=== PATIENT | male | born 1965 | race American Indian/Alaskan Native ===

== ENCOUNTER 2019-02-06 00:36 | Emergency (ER) | payer SELFPAY ==
[2019-02-06] MEDS ORDERED: LIDOCAINE 1.5% /EPINEPHRINE 1:200,000 AMP (5 ML) INFILTRATI ONE (00:45)
[2019-02-06] MEDS ORDERED: SODIUM CHLORIDE 0.9% IRR 500 ML BOTTLE IR ONE (00:45)
[2019-02-06] MEDS ORDERED: LIDOCAINE 1%/EPINEPHRINE 1:100,000 VIAL (20 ML) INFILTRATI ONE (00:54)
--- NOTE | 2019-02-06 01:42 | Emergency Department Report ---
ED General Adult HPI - General Chief complaint: Fall Stated complaint: HEAD PAIN Time Seen by Provider: 02/06/19 00:38 Source: patient, family, EMS ( EMS documentation not available at time of chart dictation ) Mode of arrival: Stretcher Limitations: Other (intoxication) - History of Present Illness Initial comments: This is a pleasant and cooperative 53-year-old gentleman who is brought to the hospital by emergency medical services. Patient was at a alliance party, recreationally consuming marijuana and alcohol, and reportedly tripped and fell. He is not sure if he lost consciousness. He has a right-sided forehead laceration. He has right-sided forehead pain. He denies additional pain. He thinks he is up-to-date with tetanus vaccinations. -: This morning Location: head Radiation: non-radiation Quality: aching Consistency: constant Improves with: rest Worsens with: movement - Related Data Allergies Allergy/AdvReac Type Severity Reaction Status Date / Time No Known Allergies Allergy Verified 02/06/19 01:46 ED Review of Systems ROS: Stated complaint: HEAD PAIN Other details as noted in HPI Constitutional: denies: fever Eyes: denies: eye discharge ENT: denies: dental pain Respiratory: denies: wheezing Cardiovascular: denies: syncope Gastrointestinal: denies: abdominal pain Musculoskeletal: denies: back pain Skin: lesions Neurological: headache. denies: weakness, numbness, paresthesias ED Past Medical Hx - Past Medical History Previous Medical History?: Yes Hx Hypertension: Yes Hx Diabetes: Yes - Surgical History Past Surgical History?: No - Social History Smoking Status: Never Smoker ED Physical Exam - General Limitations: Other (the patient is intoxicated) General appearance: appears intoxicated - Head Head exam: Present: normocephalic, other (on the right lateral forehead, there is a 3 cm laceration, with no obvious foreign bodies) - Eye Eye exam: Present: normal appearance, PERRL, EOMI, other (visual acuity intact to finger counting, color perception, reading at a close distance). Absent: nystagmus - ENT ENT exam: Present: normal exam, normal orophraynx, mucous membranes moist, TM's normal bilaterally, normal external ear exam, other (there is no nasal septal hematoma. There is no hemotympanum) - Neck Neck exam: Present: normal inspection. Absent: tenderness, meningismus - Respiratory Respiratory exam: Present: normal lung sounds bilaterally. Absent: respiratory distress - Cardiovascular Cardiovascular Exam: Present: regular rate, normal rhythm, normal heart sounds. Absent: bradycardia, tachycardia, irregular rhythm, systolic murmur, diastolic murmur, rubs, gallop - GI/Abdominal GI/Abdominal exam: Present: soft. Absent: distended, tenderness, guarding, re bound, rigid, pulsatile mass - Rectal Rectal exam: Present: deferred - Extremities Exam Extremities exam: Present: normal inspection, full ROM, other (2+ pulses noted in the bilateral upper, lower extremities. There is no long bone tenderness. Musculoskeletal compartments are soft. The pelvis is stable.). Absent: pedal edema, calf tenderness - Back Exam Back exam: Present: normal inspection. Absent: tenderness, CVA tenderness (R), CVA tenderness (L), paraspinal tenderness, vertebral tenderness - Neurological Exam Neurological exam: Present: alert, oriented X3, other (there is no facial droop. The tongue is midline. Extraocular movements are intact bilaterally. Patient speaking in full complete sentences. Shoulder shrug is intact bilaterally. Hearing is grossly intact bilaterally. Visual acuity intact to finger counting and color perception at a close distance. 5/5 strength 4 extremities. Sensation intact to light touch in 4 extremities.) - Psychiatric Psychiatric exam: Present: anxious - Skin Skin exam: Present: warm ED Course Vital Signs 02/06/19 02/06/19 02/06/19 01:14 01:20 02:12 Temperature 98.7 F Pulse Rate 80 87 Respiratory 18 18 18 Rate Blood Pressure 140/109 Blood Pressure 139/40 [Right] O2 Sat by Pulse 100 100 Oximetry - Reevaluation(s) Reevaluation #1: 02/06/19 01:40 Differential diagnosis, including but not limited to: Intracranial injury, cervical spine injury, superficial laceration, intoxication secondary to cannabis, alcohol Assessment and plan: 53-year-old gentleman who is clinically intoxicated, but pleasant, calm and cooperative, eyes open spontaneously, follows commands, has appropriate thought process, GCS of 15, with right-sided for head trauma after trip and fall. No additional injuries noted on primary and secondary survey. Patient placed on ER hold, cervical collar ordered, noncontrast CT scan brain, cervical spine ordered, screening laboratory studies ordered, right-sided forehead laceration is repaired. Patient will be observed in the ER pending resolution of the aforementioned diagnostics. He is accompanied by a sober adult, who feels comfortable to watch him at this point time. Reevaluation #2: 02/06/19 02:[address] scan of the brain is negative for acute disease. Reevaluation #3: 02/06/19 02:[address] scan of the brain and cervical spine negative for acute disease. Screening laboratory studies are fairly unremarkable. The patient does not appear to have an emergent medical condition at this time, and he suitable for discharge with his sober adult rn hyperbaric. Reevaluation #4: 02/06/19 02:35 Cervical spine is cleared at this time. CT scan negative, there is no midline cervical spine tenderness, and patient has appropriate strength and sensation in the bilateral upper, lower extremities. - Laceration /Wound Repair Right Lateral Face Wound Location: face Wound Length (cm): 3 Wound's Depth, Shape: into muscle, irregular, contused tissue Wound Explored: clean Irrigated w/ Saline (ccs): 450 Anesthesia: Lidocaine w/ Epi Volume Anesthetic (ccs): 5 Wound Repaired With: sutures Suture Size/Type: 4:0 (monofilament nonabsorbable) Number of Sutures: 5 Layer Closure?: No Sterile Dressing Applied?: Yes ED Medical Decision Making - Lab Data Result diagrams: 02/06/19 00:54 Vital Signs 02/06/19 02/06/19 01:14 01:20 Temperature 98.7 F Pulse Rate 80 Respiratory 18 18 Rate Blood Pressure 140/109 O2 Sat by Pulse 100 Oximetry Vital Signs 02/06/19 02/06/19 02/06/19 01:14 01:20 02:12 Temperature 98.7 F Pulse Rate 80 87 Respiratory 18 18 18 Rate Blood Pressure 140/109 Blood Pressure 139/40 [Right] O2 Sat by Pulse 100 100 Oximetry Lab Results 02/06/19 02/06/19 02/06/19 Range/Units 00:54 00:54 00:54 Sodium 134 L (137-145) mmol/L Potassium 3.9 (3.6-5.0) mmol/L Chloride 99.5 (98-107) mmol/L Carbon Dioxide 17 L (22-30) mmol/L Anion Gap 21 mmol/L BUN 14 (9-20) mg/dL Creatinine 1.2 (0.8-1.5) mg/dL Estimated GFR > 60 ml/min BUN/Creatinine Ratio 12 % Glucose 343 H (75-100) mg/dL Calcium 9.7 (8.4-10.2) mg/dL Magnesium 2.50 H (1.7-2.3) mg/dL Total Creatine Kinase 168 (55-170) units/L Salicylates < 0.3 L (2.8-20.0) mg/dL Acetaminophen < 5.0 L (10.0-30.0) ug/mL Plasma/Serum Alcohol (0-0.07) % 02/06/19 Range/Units 00:54 Sodium (137-145) mmol/L Potassium (3.6-5.0) mmol/L Chloride (98-107) mmol/L Carbon Dioxide (22-30) mmol/L Anion Gap mmol/L BUN (9-20) mg/dL Creatinine (0.8-1.5) mg/dL Estimated GFR ml/min BUN/Creatinine Ratio % Glucose (75-100) mg/dL Calcium (8.4-10.2) mg/dL Magnesium (1.7-2.3) mg/dL Total Creatine Kinase (55-170) units/L Salicylates (2.8-20.0) mg/dL Acetaminophen (10.0-30.0) ug/mL Plasma/Serum Alcohol < 0.01 (0-0.07) % - Radiology Data Radiology results: pending Critical care attestation.: If time is entered above; I have spent that time in minutes in the direct care of this critically ill patient, excluding procedure time. ED Disposition Clinical Impression: Forehead laceration, Intoxication Disposition: DC-01 TO HOME OR SELFCARE Is pt being admited?: No Does the pt Need Aspirin: No Condition: Stable Additional Instructions: Patient may wash for head laceration with gentle soap and water every 12-24 hours. Patient may apply [id number] bacitracin every 4-6 hours for the next 5 days, to forehead laceration. Recommend sutures be removed in 5-7 days. Patient may follow-up with the primary care doctor, urgent care center, or return to this department to have the sutures removed. In the future, recommend abstinence and avoidance of marijuana and recreational drugs. Recommends not combining marijuana with alcohol. Combination of multiple intoxicating substances may cause impairment in judgment, coordination, balance, and they leads 2 injury, disability, paralysis, loss of quality of life, . Recommend follow-up with the primary care doctor within the next month. Return to the emergency room right away with new, worsened, different symptoms, or symptoms not present on the initial emergency room evaluation. For pain control, patient may take [id number] Tylenol, 650 mg every 4-6 hours, changing with ibuprofen, 600 mg with food, every 6 hours. Patient may alternate ice packs and heat packs. Would recommend avoidance of heavy lifting and strenuous physical activities, would also recommend the patient not participate in physical sports, or contact sports, until cleared to do so by her primary care physician. Referrals: [facility] [Provider Group] - 3-5 Days [facility] [Provider Group] - 3-5 Days
[2019-02-06] MEDS ORDERED: BACITRACIN ZINC OINT 28.4 GM TP STA (01:43)
--- NOTE | 2019-02-06 02:11 | Cat Scan Report ---
CT head/brain wo con INDICATION / CLINICAL INFORMATION: intoxicated trip fall blunt head trauma. TECHNIQUE: Axial CT imaging of the brain was obtained without contrast. Coronal and sagittal reformatted imaging obtained and reviewed. All CT scans at this location are performed using CT dose reduction for ALAR A by means of automated exposure control. COMPARISON: None available. FINDINGS: No intracranial hemorrhage, mass, or midline shift identified. No extra-axial fluid collection or sug gestion of acute territorial infarction. Lacunar infarcts are present in the basal ganglia bilaterall y. Mild/moderate bilateral cerebral and cerebellar atrophy noted. Visualized paranasal sinuses and mastoid air cells appear well aerated and grossly clear. No calvaria l fracture noted. There is a small soft tissue hematoma overlying the right frontal scalp laterally. IMPRESSION: 1. No acute intracranial abnormality. 2. Small right frontal scalp hematoma. 3. Bilateral old lacunar infarcts, Signer Name: Huong Haynes MD Signed: 02/06/2019 2:06 AM Workstation Name: [id number]
--- NOTE | 2019-02-06 02:14 | Cat Scan Report ---
CT cervical spine wo con INDICATION / CLINICAL INFORMATION: MAIN: intoxicated, trip/ fall. blunt head trauma. TECHNIQUE: Axial CT imaging of the cervical spine was obtained without contrast. Coronal and sagittal reformatte d imaging obtained and reviewed. All CT scans at this location are performed using CT dose reduction for ALARA by means of automated exposure control. COMPARISON: None available. FINDINGS: No cervical spine fracture or malalignment is noted. Mild degenerative changes noted throughout the c ervical spine with mild multilevel degenerative disc disease. No significant paraspinal soft tissue abnormality. Visualized lung bases are clear. IMPRESSION: 1. No evidence of cervical spine fracture or traumatic malalignment. 2. Mild diffuse spondylytic change with mild multilevel degenerative disc disease. Signer Name: Huong Haynes MD Signed: 02/06/2019 2:09 AM Workstation Name: [id number]
[2019-02-06 02:29] LABS: BUN/Creatinine Ratio 12; Blood Urea Nitrogen 14 mg/dL (9-20); Calcium 9.7 mg/dL (8.4-10.2); Hemolysis Index 35
[2019-02-06 03:30] VITALS: BP 151/62
== END 2019-02-06 03:30 | disposition home or self-care (01) ==
LOC: ED 00:36
DX: S01.91XA Laceration without foreign body of unspecified part of head, initial encounter (principal); F10.120 Alcohol abuse with intoxication, uncomplicated; I10 Essential (primary) hypertension; E11.9 Type 2 diabetes mellitus without complications; W01.198A Fall on same level from slipping, tripping and stumbling with subsequent striking against other object, initial encounter; Y93.89 Activity, other specified; Y92.89 Other specified places as the place of occurrence of the external cause; Y99.8 Other external cause status
CPT/HCPCS: 36415; 70450; 72125; 80048; 80320; 82550; 83735; G0480

== ENCOUNTER 2019-03-13 11:10 | Emergency (ER) | payer SELFPAY ==
--- NOTE | 2019-03-13 11:27 | Event Note ---
ED Screening Note Date of service: 03/13/19 Time: 11:26 ED Screening Note: This is a 53 y.o. M. that presents to the ER with nausea and vomiting for 3 days. PMH of DM2, HTN, & ETOH abuse This initial assessment/diagnostic orders/clinical plan/treatment(s) is/are subject to change based on patients health status, clinical progression and re- assessment by fellow clinical providers in the ED. Further treatment and workup at subsequent clinical providers discretion. Patient/guardian urged not to elope from the ED as their condition may be serious if not clinically assessed and managed. Initial orders include: Labs
[2019-03-13 11:47] LABS: Basophils % (Auto) 0.4 % (0.0-1.8); Eosinophils % (Auto) 0.8 % (0.0-4.3); Hematocrit 49.7 % (35.5-45.6); Hemoglobin 16.9 gm/dl (11.8-15.2); Lymphocytes # (Auto) 2.1 K/mm3 (1.2-5.4); Lymphocytes % (Auto) 35.7 % (13.4-35.0); Mean Corpuscular HGB Conc 34 % (32-34); Mean Corpuscular Volume 91 fl (84-94); Monocytes # (Auto) 0.5 K/mm3 (0.0-0.8); Monocytes % (Auto) 8.4 % (0.0-7.3); Platelet Count 247 K/mm3 (140-440); Red Blood Count 5.46 M/mm3 (3.65-5.03); Red Cell Distribution Width 12.9 % (13.2-15.2)
[2019-03-13 12:08] LABS: Alanine Aminotransferase 10 units/L (7-56); Albumin 4.3 g/dL (3.9-5); BUN/Creatinine Ratio 28; Blood Urea Nitrogen 22 mg/dL (9-20); Calcium 9.4 mg/dL (8.4-10.2); Hemolysis Index 28
--- NOTE | 2019-03-13 13:53 | Emergency Department Report ---
ED General Adult HPI - General Chief complaint: Nausea/Vomiting/Diarrhea Stated complaint: VOMTING/DIABETIC/HBP Time Seen by Provider: 03/13/19 11:25 Source: patient Mode of arrival: Ambulatory Limitations: No Limitations - History of Present Illness Initial comments: This is a 53-year-old male who has been noncompliant with his insulin since he states June. He states that he was probably admitted about a year ago to [facility] for uncontrolled diabetes at that time. He denies a history of any serious bacterial infections. He denies problems with his toes, ulcers, MRSA, abscess. He thinks he might of had a chill recently but has not checked his temperature or had a sarah fever. He has not been taking Tylenol. Patient presents to the emergency department presenting his diabetes is out of control. He does not take his sugar. He has been occasionally vomiting. He states he cannot tolerate by mouth intake. He has had some mild epigastric pain. There is been no signs of GI bleeding. He is not complaining of any active abdominal pain right now. He does state he has been urinating frequently hungry and thirsty. -: Gradual, days(s) Location: abdomen Radiation: non-radiation Quality: dull Consistency: intermittent, now resolved Improves with: none Worsens with: none Associated Symptoms: denies other symptoms, nausea/vomiting. denies: headaches, shortness of breath Treatments Prior to Arrival: none - Related Data Previous Rx's Medication Instructions Recorded Last Taken Type Insulin NPH/Regular [Novolin 70/30] 10 unit SUB-Q BID #1 vial 03/13/19 Unknown Rx Syringe and Needle,Insulin,1Ml 1 each MC BID #1 box 03/13/19 Unknown Rx [Insulin Syringe/Needle 1 ML] Allergies Allergy/AdvReac Type Severity Reaction Status Date / Time No Known Allergies Allergy Verified 03/13/19 11:12 ED Review of Systems ROS: Stated complaint: VOMTING/DIABETIC/HBP Other details as noted in HPI Constitutional: denies: chills, fever Eyes: denies: eye pain, eye discharge, vision change ENT: denies: ear pain, throat pain Respiratory: denies: cough, shortness of breath, wheezing Cardiovascular: denies: chest pain, palpitations Endocrine: no symptoms reported Gastrointestinal: abdominal pain, nausea, vomiting. denies: diarrhea Genitourinary: denies: urgency, dysuria Musculoskeletal: denies: back pain, joint swelling, arthralgia Skin: denies: rash, lesions Neurological: denies: headache, weakness, paresthesias Psychiatric: denies: anxiety, depression Hematological/Lymphatic: denies: easy bleeding, easy bruising ED Past Medical Hx - Past Medical History Previous Medical History?: Yes Hx Hypertension: Yes Hx Diabetes: Yes - Surgical History Past Surgical History?: No - Social History Smoking Status: Never Smoker Substance Use Type: None - Medications Home Medications: Home Medications Medication Instructions Recorded Confirmed Last Taken Type Insulin NPH/Regular [Novolin 70/30] 10 unit SUB-Q BID #1 vial 03/13/19 Unknown Rx Syringe and Needle,Insulin,1Ml 1 each MC BID #1 box 03/13/19 Unknown Rx [Insulin Syringe/Needle 1 ML] ED Physical Exam - General Limitations: No Limitations General appearance: alert, in no apparent distress, other (volume depletion) - Head Head exam: Present: atraumatic, normocephalic - Eye Eye exam: Present: normal appearance, PERRL, EOMI. Absent: scleral icterus - ENT ENT exam: Present: mucous membranes dry (somewhat) - Neck Neck exam: Present: normal inspection. Absent: tenderness, meningismus - Respiratory Respiratory exam: Present: normal lung sounds bilaterally. Absent: respiratory distress - Cardiovascular Cardiovascular Exam: Present: regular rate, normal rhythm. Absent: systolic murmur, diastolic murmur, rubs, gallop - GI/Abdominal GI/Abdominal exam: Present: soft, tenderness (mild epigastric without guarding or rebound, only on deep palpation), normal bowel sounds. Absent: distended, guarding, rebound, rigid - Rectal Rectal exam: Present: deferred - Extremities Exam Extremities exam: Present: normal inspection - Back Exam Back exam: Present: normal inspection - Neurological Exam Neurological exam: Present: alert, oriented X3, CN II-XII intact. Absent: motor sensory deficit - Psychiatric Psychiatric exam: Present: normal affect, normal mood - Skin Skin exam: Present: warm, dry, intact, normal color. Absent: rash ED Course Vital Signs 03/13/19 03/13/19 03/13/19 11:25 21:36 21:49 Temperature 97.5 F L 97.9 F Pulse Rate 84 80 Respiratory 18 20 20 Rate Blood Pressure 142/101 Blood Pressure 155/89 [Left] O2 Sat by Pulse 100 99 99 Oximetry - Reevaluation(s) Reevaluation #1: Patient has a substantially elevated anion gap. Repeat chemistries and further workup has been ordered. Discussed with hospitalist. I will leave it to their discretion as to whether they want to start an insulin drip. Patient is quite dehydrated. IV fluids have been ordered. Awaiting further laboratory studies. Hospitalist will make disposition of the patient. 03/13/19 15:37 ED Medical Decision Making - Lab Data Result diagrams: 03/13/19 11:32 03/13/19 11:32 Laboratory Results - last 24 hr 03/13/19 03/13/19 03/13/19 11:32 11:32 11:39 WBC 5.9 RBC 5.46 H Hgb 16.9 H Hct 49.7 H MCV 91 MCH 31 MCHC 34 RDW 12.9 L Plt Count 247 Lymph % (Auto) 35.7 H [place] % (Auto) 8.4 H Eos % (Auto) 0.8 Baso % (Auto) 0.4 Lymph # 2.1 [place] # 0.5 Eos # 0.0 Baso # 0.0 Seg Neutrophils % 54.7 Seg Neutrophils # 3.2 Sodium 134 L Potassium 3.9 Chloride 91.2 L Carbon Dioxide 22 Anion Gap 25 BUN 22 H Creatinine 0.8 Estimated GFR > 60 BUN/Creatinine Ratio 28 Glucose 341 H POC Glucose 326 H Calcium 9.4 Total Bilirubin 0.90 AST 13 ALT 10 Alkaline Phosphatase 63 Total Protein 8.3 H Albumin 4.3 Albumin/Globulin Ratio 1.1 Laboratory Results - last 24 hr 03/13/19 03/13/19 03/13/19 11:32 11:32 11:39 WBC 5.9 RBC 5.46 H Hgb 16.9 H Hct 49.7 H MCV 91 MCH 31 MCHC 34 RDW 12.9 L Plt Count 247 Lymph % (Auto) 35.7 H [place] % (Auto) 8.4 H Eos % (Auto) 0.8 Baso % (Auto) 0.4 Lymph # 2.1 [place] # 0.5 Eos # 0.0 Baso # 0.0 Seg Neutrophils % 54.7 Seg Neutrophils # 3.2 Sodium 134 L Potassium 3.9 Chloride 91.2 L Carbon Dioxide 22 Anion Gap 25 BUN 22 H Creatinine 0.8 Estimated GFR > 60 BUN/Creatinine Ratio 28 Glucose 341 H POC Glucose 326 H Calcium 9.4 Total Bilirubin 0.90 AST 13 ALT 10 Alkaline Phosphatase 63 Total Protein 8.3 H Albumin 4.3 Albumin/Globulin Ratio 1.1 Urine Color Urine Turbidity Urine pH Ur Specific [place] Urine Protein Urine Glucose (UA) Urine Ketones Urine Blood Urine Nitrite Urine Bilirubin Urine Urobilinogen Ur Leukocyte Esterase Urine WBC (Auto) Urine RBC (Auto) U Epithel Cells (Auto) 03/13/19 14:38 WBC RBC Hgb Hct MCV MCH MCHC RDW Plt Count Lymph % (Auto) [place] % (Auto) Eos % (Auto) Baso % (Auto) Lymph # [place] # Eos # Baso # Seg Neutrophils % Seg Neutrophils # Sodium Potassium Chloride Carbon Dioxide Anion Gap BUN Creatinine Estimated GFR BUN/Creatinine Ratio Glucose POC Glucose Calcium Total Bilirubin AST ALT Alkaline Phosphatase Total Protein Albumin Albumin/Globulin Ratio Urine Color Yellow Urine Turbidity Clear Urine pH 6.0 Ur Specific [place] 1.039 H Urine Protein <15 mg/dl Urine Glucose (UA) >=500 Urine Ketones 80 Urine Blood Neg Urine Nitrite Neg Urine Bilirubin Neg Urine Urobilinogen < 2.0 Ur Leukocyte Esterase Neg Urine WBC (Auto) < 1.0 Urine RBC (Auto) 1.0 U Epithel Cells (Auto) 1.0 Laboratory Results - last 24 hr 03/13/19 03/13/19 03/13/19 11:32 11:32 11:39 WBC 5.9 RBC 5.46 H Hgb 16.9 H Hct 49.7 H MCV 91 MCH 31 MCHC 34 RDW 12.9 L Plt Count 247 Lymph % (Auto) 35.7 H [place] % (Auto) 8.4 H Eos % (Auto) 0.8 Baso % (Auto) 0.4 Lymph # 2.1 [place] # 0.5 Eos # 0.0 Baso # 0.0 Seg Neutrophils % 54.7 Seg Neutrophils # 3.2 PT INR APTT VBG pH Sodium 134 L Potassium 3.9 Chloride 91.2 L Carbon Dioxide 22 Anion Gap 25 BUN 22 H Creatinine 0.8 Estimated GFR > 60 BUN/Creatinine Ratio 28 Glucose 341 H POC Glucose 326 H Lactic Acid Calcium 9.4 Magnesium Total Bilirubin 0.90 Direct Bilirubin Indirect Bilirubin AST 13 ALT 10 Alkaline Phosphatase 63 Total Creatine Kinase CK-MB (CK-2) CK-MB (CK-2) Rel Index NT-Pro-B Natriuret Pep Total Protein 8.3 H Albumin 4.3 Albumin/Globulin Ratio 1.1 Urine Color Urine Turbidity Urine pH Ur Specific [place] Urine Protein Urine Glucose (UA) Urine Ketones Urine Blood Urine Nitrite Urine Bilirubin Urine Urobilinogen Ur Leukocyte Esterase Urine WBC (Auto) Urine RBC (Auto) U Epithel Cells (Auto) 03/13/19 03/13/19 03/13/19 14:38 14:57 14:57 WBC RBC Hgb Hct MCV MCH MCHC RDW Plt Count Lymph % (Auto) [place] % (Auto) Eos % (Auto) Baso % (Auto) Lymph # [place] # Eos # Baso # Seg Neutrophils % Seg Neutrophils # PT 12.8 INR 0.95 APTT 24.2 VBG pH Sodium Potassium Chloride Carbon Dioxide Anion Gap BUN Creatinine Estimated GFR BUN/Creatinine Ratio Glucose POC Glucose Lactic Acid Calcium Magnesium 2.30 Total Bilirubin Direct Bilirubin Indirect Bilirubin AST ALT Alkaline Phosphatase Total Creatine Kinase 68 CK-MB (CK-2) 2.2 CK-MB (CK-2) Rel Index 3.2 NT-Pro-B Natriuret Pep 65.69 Total Protein Albumin Albumin/Globulin Ratio Urine Color Yellow Urine Turbidity Clear Urine pH 6.0 Ur Specific [place] 1.039 H Urine Protein <15 mg/dl Urine Glucose (UA) >=500 Urine Ketones 80 Urine Blood Neg Urine Nitrite Neg Urine Bilirubin Neg Urine Urobilinogen < 2.0 Ur Leukocyte Esterase Neg Urine WBC (Auto) < 1.0 Urine RBC (Auto) 1.0 U Epithel Cells (Auto) 1.0 03/13/19 03/13/19 03/13/19 14:57 14:57 15:43 WBC RBC Hgb Hct MCV MCH MCHC RDW Plt Count Lymph % (Auto) [place] % (Auto) Eos % (Auto) Baso % (Auto) Lymph # [place] # Eos # Baso # Seg Neutrophils % Seg Neutrophils # PT INR APTT VBG pH 7.328 Sodium Potassium Chloride Carbon Dioxide Anion Gap BUN Creatinine Estimated GFR BUN/Creatinine Ratio Glucose POC Glucose Lactic Acid 1.60 Calcium Magnesium Total Bilirubin 0.80 Direct Bilirubin < 0.2 Indirect Bilirubin 0.6 AST 14 ALT 10 Alkaline Phosphatase 59 Total Creatine Kinase CK-MB (CK-2) CK-MB (CK-2) Rel Index NT-Pro-B Natriuret Pep Total Protein 7.6 Albumin 3.8 L Albumin/Globulin Ratio 1.0 Urine Color Urine Turbidity Urine pH Ur Specific [place] Urine Protein Urine Glucose (UA) Urine Ketones Urine Blood Urine Nitrite Urine Bilirubin Urine Urobilinogen Ur Leukocyte Esterase Urine WBC (Auto) Urine RBC (Auto) U Epithel Cells (Auto) 03/13/19 15:43 WBC RBC Hgb Hct MCV MCH MCHC RDW Plt Count Lymph % (Auto) [place] % (Auto) Eos % (Auto) Baso % (Auto) Lymph # [place] # Eos # Baso # Seg Neutrophils % Seg Neutrophils # PT INR APTT VBG pH Sodium Potassium Chloride Carbon Dioxide Anion Gap BUN Creatinine Estimated GFR BUN/Creatinine Ratio Glucose POC Glucose Lactic Acid 1.70 Calcium Magnesium Total Bilirubin Direct Bilirubin Indirect Bilirubin AST ALT Alkaline Phosphatase Total Creatine Kinase CK-MB (CK-2) CK-MB (CK-2) Rel Index NT-Pro-B Natriuret Pep Total Protein Albumin Albumin/Globulin Ratio Urine Color Urine Turbidity Urine pH Ur Specific [place] Urine Protein Urine Glucose (UA) Urine Ketones Urine Blood Urine Nitrite Urine Bilirubin Urine Urobilinogen Ur Leukocyte Esterase Urine WBC (Auto) Urine RBC (Auto) U Epithel Cells (Auto) - Radiology Data Radiology results: report reviewed (chest x-ray no acute process) Critical care attestation.: If time is entered above; I have spent that time in minutes in the direct care of this critically ill patient, excluding procedure time. ED Disposition Clinical Impression: Increased anion gap metabolic acidosis Uncontrolled diabetes mellitus with hyperglycemia Qualifiers: Diabetes mellitus type: type 2 Qualified Code(s): E11.65 - Type 2 diabetes mellitus with hyperglycemia Disposition: - TO HOME OR SELFCARE Is pt being admited?: No Does the pt Need Aspirin: No Condition: Stable Instructions: Diabetes Mellitus Type 2 in Adults (ED) Prescriptions: Syringe and Needle,Insulin,1Ml [Insulin Syringe/Needle 1 ML] 1 each MC BID #1 box Insulin NPH/Regular [Novolin 70/30] 10 unit SUB-Q BID #1 vial Referrals: PRIMARY CARE, [Primary Care Provider] - 3-5 Days Time of Disposition: 16:38
[2019-03-13] MEDS ORDERED: SODIUM CHLORIDE 0.9% 1000 ML 1,000 ML IV ONE ×3 (14:01→16:00)
--- NOTE | 2019-03-13 14:51 | XRay Report ---
CHEST 2 VIEWS INDICATION / CLINICAL INFORMATION: hypertension. COMPARISON: None available. FINDINGS: SUPPORT DEVICES: None. HEART / MEDIASTINUM: No significant abnormality. LUNGS / PLEURA: No significant pulmonary or pleural abnormality. No pneumothorax. ADDITIONAL FINDINGS: No significant additional findings. IMPRESSION: 1. No significant abnormality. Signer Name: Huong Haynes MD Signed: 03/13/2019 2:47 PM Workstation Name: [id number]
[2019-03-13 15:07] LABS: Bilirubin,Urine NEG (Negative); Blood,Urine NEG (Negative); Color,Urine Yellow (Yellow); Protein,Urine <15 mg/dL mg/dL (Negative); Urobilinogen,Urine < 2.0 mg/dL (<2.0); WBC,Urine < 1.0 /HPF (0.0-6.0)
[2019-03-13 15:43] LABS: INR 0.95 (0.87-1.13)
[2019-03-13 15:44] LABS: Partial Thromboplastin Time 24.2 Sec. (24.2-36.6)
[2019-03-13 15:50] LABS: Creatine Kinase MB 2.2 ng/mL (0.0-4.0)
[2019-03-13 16:21] LABS: Alanine Aminotransferase 10 units/L (7-56); Albumin 3.8 g/dL (3.9-5)
[2019-03-13 16:22] LABS: Bilirubin,Direct < 0.2 mg/dL (0-0.2)
--- NOTE | 2019-03-13 16:28 | Event Note ---
Date: 03/13/19 53 YO Male with DM, HTN, Medication noncompliance presents to ED for evaluation. Pt seen and evaluated in ED and found to have Uncontrolled DM secondary to medication and dietary noncompliance, as well as volume depletion. Pt treated with IVF resuscitation therapy, and insulin therapy. Pt medically optimized and back to usual state of health. Pt discharged home. Pt underwent behavior change counseling regarding carbohydrate counting, blood glucose testing and PCP F/U care. Pt instructed to maintain blood glucose log and blood pressure log and present to PCP at F/U visit. - General Limitations: No Limitations General appearance: alert, in no apparent distress, other (volume depletion) - Head Head exam: Present: atraumatic, normocephalic - Eye Eye exam: Present: normal appearance, PERRL, EOMI. Absent: scleral icterus - ENT ENT exam: Present: mucous membranes moist) - Neck Neck exam: Present: normal inspection. Absent: tenderness, meningismus - Respiratory Respiratory exam: Present: normal lung sounds bilaterally. Absent: respiratory distress - Cardiovascular Cardiovascular Exam: Present: regular rate, normal rhythm. Absent: systolic murmur, diastolic murmur, rubs, gallop - GI/Abdominal GI/Abdominal exam: Present: soft, nontender, nondistended, normal bowel sounds. Absent: distended, guarding, rebound, rigid - Rectal Rectal exam: Present: deferred - Extremities Exam Extremities exam: Present: normal inspection - Back Exam Back exam: Present: normal inspection - Neurological Exam Neurological exam: Present: alert, oriented X3, CN II-XII intact. Absent: motor sensory deficit - Psychiatric Psychiatric exam: Present: normal affect, normal mood - Skin Skin exam: Present: warm, dry, intact, normal color. Absent: rash ED Course
[2019-03-13] MEDS ORDERED: INSULIN NPH/REGULAR 70/30 INJ SUB-Q ONE (17:00)
[2019-03-13 21:36] VITALS: BP 155/89
== END 2019-03-13 21:51 | disposition home or self-care (01) ==
LOC: ED 11:10
DX: E11.65 Type 2 diabetes mellitus with hyperglycemia (principal); E87.2 Acidosis
CPT/HCPCS: 36415; 71046; 80053; 80076; 81001; 82140; 82550; 82553; 82805; 82962; 83735; 83880; 85025; 85610; 85730; 87086; 96360; 96361; 96372; 99284; J7030; J1815

== ENCOUNTER 2020-12-05 20:51 | Inpatient (IN) | payer OTHER ==
[2020-12-05 21:54] LABS: Bilirubin,Urine NEG (Negative); Blood,Urine SM (Negative); Color,Urine Straw (Yellow); Protein,Urine <15 mg/dL mg/dL (Negative); Urobilinogen,Urine < 2.0 mg/dL (<2.0); WBC,Urine < 1.0 /HPF (0.0-6.0)
--- NOTE | 2020-12-05 22:18 | Emergency Department Report ---
ED Altered Mental Status HPI - General Chief Complaint: Altered Mental Status Stated Complaint: ALTERED MENTAL STATUS PUI?: No Time Seen by Provider: 12/05/20 22:12 Source: patient, EMS Mode of arrival: Stretcher Limitations: Altered Mental Status - History of Present Illness Initial Comments: Patient is a 54-year-old male who presents emergency room for altered mental status. Patient brought in by EMS. Report received from EMS. EMS states that the sister states that he is altered and is not acting himself. EMS states the patient has a history of diabetes, hypertension, noncompliance, encephalitis unknown date. Patient is alert and oriented x3 but the patient is disoriented to situation and reason that he is in the hospital. Patient answers some questions appropriate. Patient answers I do not know to a lot of questions. Patient denies pain. Patient denies fever and chills. Patient denies recent travel. Patient denies recent international travel. Patient denies exposure to the novel coronavirus. Patient denies sick contacts. Patient denies fever and chills. Patient denies cough. Patient denies delano rrhea. Patient denies coming in contact with anybody with symptoms of the novel coronavirus. Patient states he is not vaccinated for COVID-19. MD Complaint: altered mental status, confusion -: Sudden Severity: severe Consistency of Symptoms: waxing and waning Context: diabetes, other (Noncompliance) - Related Data Previous Rx's Medication Instructions Recorded Last Taken Type Insulin NPH/Regular [Novolin 70/30] 10 unit SUB-Q BID #1 vial 03/13/19 Unknown Rx Syringe and Needle,Insulin,1Ml 1 each MC BID #1 box 03/13/19 Unknown Rx [Insulin Syringe/Needle 1 ML] Allergies Allergy/AdvReac Type Severity Reaction Status Date / Time No Known Allergies Allergy Verified 03/13/19 11:12 ED Review of Systems ROS: Stated complaint: ALTERED MENTAL STATUS Other details as noted in HPI Comment: Unobtainable due to pts medical conditions ED Past Medical Hx - Past Medical History Previous Medical History?: Yes Hx Hypertension: Yes Hx Diabetes: Yes Additional medical history: Encephalopathyunknown date. - Surgical History Past Surgical History?: No - Family History Family history: no significant - Social History Smoking Status: Never Smoker Substance Use Type: None - Medications Home Medications: Home Medications Medication Instructions Recorded Confirmed Last Taken Type Insulin NPH/Regular [Novolin 70/30] 10 unit SUB-Q BID #1 vial 03/13/19 Unknown Rx Syringe and Needle,Insulin,1Ml 1 each MC BID #1 box 03/13/19 Unknown Rx [Insulin Syringe/Needle 1 ML] ED Physical Exam - General Limitations: Altered Mental Status General appearance: alert, in no apparent distress - Head Head exam: Present: atraumatic, normocephalic - Eye Eye exam: Present: normal appearance, PERRL Pupils: Present: normal accommodation - ENT ENT exam: Present: mucous membranes dry - Neck Neck exam: Present: normal inspection - Respiratory Respiratory exam: Present: normal lung sounds bilaterally. Absent: respiratory distress, wheezes, rales - Cardiovascular Cardiovascular Exam: Present: regular rate, normal rhythm. Absent: systolic murmur, diastolic murmur, rubs, gallop - GI/Abdominal GI/Abdominal exam: Present: soft, normal bowel sounds. Absent: distended, tenderness, guarding - Rectal Rectal exam: Present: deferred - Extremities Exam Extremities exam: Present: normal inspection - Back Exam Back exam: Present: normal inspection - Neurological Exam Neurological exam: Present: alert, altered, CN II-XII intact - Psychiatric Psychiatric exam: Present: normal affect, normal mood - Skin Skin exam: Present: warm, dry, intact, normal color. Absent: rash - Assessment Assessment Interval: Baseline - Level of Consciousness 1a. Level of Consciousness: alert/keenly responsive - LOC Questions 1b. LOC Questions: answers both correctly - LOC Command 1c. LOC Commands: performs tasks correctly - Best Gaze 2. Best Gaze: normal - Visual 3. Visual: no visual loss - Facial Palsy 4. Facial Palsy: normal symmetrical movement - Motor Arm 5a. Motor Arm Left: no drift 5b. Motor Arm Right: no drift - Motor Leg 6a. Motor Leg Left: no drift 6b. Motor Leg Right: no drift - Limb Ataxia 7. Limb Ataxia: absent - Sensory 8. Sensory: normal - Best Language 9. Best Language: no aphasia - Dysarthria 10. Dysarthria: normal - Extinction and Inattention 11. Extinction/Inattention: no abnormality - Scoring Total Score: 0 Stroke Severity: No Stroke Symptoms ED Course Vital Signs 12/05/20 12/05/20 12/05/20 22:16 22:28 22:41 Pulse Rate 81 Respiratory 16 Rate Blood Pressure 155/106 131/76 O2 Sat by Pulse 98 98 100 Oximetry 12/05/20 12/06/20 12/06/20 23:01 00:01 01:01 Pulse Rate 70 68 Respiratory 14 11 L Rate Blood Pressure 153/103 159/110 155/109 O2 Sat by Pulse 99 98 97 Oximetry - Reevaluation(s) Reevaluation #1: I discussed all results with patient. I discussed plan of care with patient. Patient agrees with plan of care and admission. Patient to be admitted to the hospitalist service. 12/06/20 00:54 - Consultations Consultation #1: Hospitalist consulted for admission. Hospitalist to admit patient. 12/06/20 00:54 - Lab Data Result diagrams: 12/05/20 22:41 12/05/20 22:41 Lab Results 12/05/20 12/05/20 12/05/20 Range/Units 22:41 22:41 22:41 WBC 5.0 (4.5-11.0) K/mm3 RBC 4.55 (3.65-5.03) M/mm3 Hgb 13.6 (11.8-15.2) gm/dl Hct 39.7 (35.5-45.6) % MCV 87 (84-94) fl MCH 30 (28-32) pg MCHC 34 (32-34) % RDW 14.3 (13.2-15.2) % Plt Count 210 (140-440) K/mm3 Lymph % (Auto) 40.3 H (13.4-35.0) % Mills % (Auto) 7.7 H (0.0-7.3) % Eos % (Auto) 3.8 (0.0-4.3) % Baso % (Auto) 0.7 (0.0-1.8) % Lymph # (Auto) 2.0 (1.2-5.4) K/mm3 Mills # (Auto) 0.4 (0.0-0.8) K/mm3 Eos # (Auto) 0.2 (0.0-0.4) K/mm3 Baso # (Auto) 0.0 (0.0-0.1) K/mm3 Seg Neutrophils % 47.5 (40.0-70.0) % Seg Neutrophils # 2.4 (1.8-7.7) K/mm3 PT 13.0 (12.2-14.9) Sec. INR 0.93 (0.87-1.13) APTT 25.1 (24.2-36.6) Sec. Sodium 138 (137-145) mmol/L Potassium 4.2 (3.6-5.0) mmol/L Chloride 102.1 (98-107) mmol/L Carbon Dioxide 27 (22-30) mmol/L Anion Gap 13 mmol/L BUN 12 (9-20) mg/dL Creatinine 0.9 (0.8-1.3) mg/dL Estimated GFR > 60 ml/min BUN/Creatinine Ratio 13 % Glucose 435 H (75-100) mg/dL Lactic Acid (0.7-2.0) mmol/L Calcium 9.2 (8.4-10.2) mg/dL Total Bilirubin 0.40 (0.1-1.2) mg/dL AST 12 (5-40) units/L ALT 12 (7-56) units/L Alkaline Phosphatase 65 (35-129) units/L Ammonia (25-60) umol/L Total Creatine Kinase 88 (55-170) units/L Troponin T 0.015 (0.00-0.029) ng/mL Total Protein 7.5 (6.3-8.2) g/dL Albumin 4.0 (3.9-5) g/dL Albumin/Globulin Ratio 1.1 % Urine Color (Yellow) Urine Turbidity (Clear) Urine pH (5.0-7.0) Ur Specific Isabel (1.003-1.030) Urine Protein (Negative) mg/dL Urine Glucose (UA) (Negative) mg/dL Urine Ketones (Negative) mg/dL Urine Blood (Negative) Urine Nitrite (Negative) Urine Bilirubin (Negative) Urine Urobilinogen (<2.0) mg/dL Ur Leukocyte Esterase (Negative) Urine WBC (Auto) (0.0-6.0) /HPF Urine RBC (Auto) (0.0-6.0) /HPF U Epithel Cells (Auto) (0-13.0) /HPF Plasma/Serum Alcohol (0-0.07) % 12/05/20 12/05/20 12/05/20 Range/Units 22:41 22:41 22:41 WBC (4.5-11.0) K/mm3 RBC (3.65-5.03) M/mm3 Hgb (11.8-15.2) gm/dl Hct (35.5-45.6) % MCV (84-94) fl MCH (28-32) pg MCHC (32-34) % RDW (13.2-15.2) % Plt Count (140-440) K/mm3 Lymph % (Auto) (13.4-35.0) % Mills % (Auto) (0.0-7.3) % Eos % (Auto) (0.0-4.3) % Baso % (Auto) (0.0-1.8) % Lymph # (Auto) (1.2-5.4) K/mm3 Mills # (Auto) (0.0-0.8) K/mm3 Eos # (Auto) (0.0-0.4) K/mm3 Baso # (Auto) (0.0-0.1) K/mm3 Seg Neutrophils % (40.0-70.0) % Seg Neutrophils # (1.8-7.7) K/mm3 PT (12.2-14.9) Sec. INR (0.87-1.13) APTT (24.2-36.6) Sec. Sodium (137-145) mmol/L Potassium (3.6-5.0) mmol/L Chloride (98-107) mmol/L Carbon Dioxide (22-30) mmol/L Anion Gap mmol/L BUN (9-20) mg/dL Creatinine (0.8-1.3) mg/dL Estimated GFR ml/min BUN/Creatinine Ratio % Glucose (75-100) mg/dL Lactic Acid 2.10 H* (0.7-2.0) mmol/L Calcium (8.4-10.2) mg/dL Total Bilirubin (0.1-1.2) mg/dL AST (5-40) units/L ALT (7-56) units/L Alkaline Phosphatase (35-129) units/L Ammonia 23.0 L (25-60) umol/L Total Creatine Kinase (55-170) units/L Troponin T (0.00-0.029) ng/mL Total Protein (6.3-8.2) g/dL Albumin (3.9-5) g/dL Albumin/Globulin Ratio % Urine Color (Yellow) Urine Turbidity (Clear) Urine pH (5.0-7.0) Ur Specific Isabel (1.003-1.030) Urine Protein (Negative) mg/dL Urine Glucose (UA) (Negative) mg/dL Urine Ketones (Negative) mg/dL Urine Blood (Negative) Urine Nitrite (Negative) Urine Bilirubin (Negative) Urine Urobilinogen (<2.0) mg/dL Ur Leukocyte Esterase (Negative) Urine WBC (Auto) (0.0-6.0) /HPF Urine RBC (Auto) (0.0-6.0) /HPF U Epithel Cells (Auto) (0-13.0) /HPF Plasma/Serum Alcohol < 0.01 (0-0.07) % 12/05/20 12/06/20 Range/Units Unknown 00:19 WBC (4.5-11.0) K/mm3 RBC (3.65-5.03) M/mm3 Hgb (11.8-15.2) gm/dl Hct (35.5-45.6) % MCV (84-94) fl MCH (28-32) pg MCHC (32-34) % RDW (13.2-15.2) % Plt Count (140-440) K/mm3 Lymph % (Auto) (13.4-35.0) % Mills % (Auto) (0.0-7.3) % Eos % (Auto) (0.0-4.3) % Baso % (Auto) (0.0-1.8) % Lymph # (Auto) (1.2-5.4) K/mm3 Mills # (Auto) (0.0-0.8) K/mm3 Eos # (Auto) (0.0-0.4) K/mm3 Baso # (Auto) (0.0-0.1) K/mm3 Seg Neutrophils % (40.0-70.0) % Seg Neutrophils # (1.8-7.7) K/mm3 PT (12.2-14.9) Sec. INR (0.87-1.13) APTT (24.2-36.6) Sec. Sodium (137-145) mmol/L Potassium (3.6-5.0) mmol/L Chloride (98-107) mmol/L Carbon Dioxide (22-30) mmol/L Anion Gap mmol/L BUN (9-20) mg/dL Creatinine (0.8-1.3) mg/dL Estimated GFR ml/min BUN/Creatinine Ratio % Glucose (75-100) mg/dL Lactic Acid 1.20 (0.7-2.0) mmol/L Calcium (8.4-10.2) mg/dL Total Bilirubin (0.1-1.2) mg/dL AST (5-40) units/L ALT (7-56) units/L Alkaline Phosphatase (35-129) units/L Ammonia (25-60) umol/L Total Creatine Kinase (55-170) units/L Troponin T (0.00-0.029) ng/mL Total Protein (6.3-8.2) g/dL Albumin (3.9-5) g/dL Albumin/Globulin Ratio % Urine Color Straw (Yellow) Urine Turbidity Clear (Clear) Urine pH 5.0 (5.0-7.0) Ur Specific Isabel 1.033 H (1.003-1.030) Urine Protein <15 mg/dl (Negative) mg/dL Urine Glucose (UA) >=500 (Negative) mg/dL Urine Ketones Neg (Negative) mg/dL Urine Blood Sm (Negative) Urine Nitrite Neg (Negative) Urine Bilirubin Neg (Negative) Urine Urobilinogen < 2.0 (<2.0) mg/dL Ur Leukocyte Esterase Neg (Negative) Urine WBC (Auto) < 1.0 (0.0-6.0) /HPF Urine RBC (Auto) 2.0 (0.0-6.0) /HPF U Epithel Cells (Auto) < 1.0 (0-13.0) /HPF Plasma/Serum Alcohol (0-0.07) % - EKG Data -: EKG Interpreted by Ne EKG shows normal: sinus rhythm, axis, intervals, QRS complexes, ST-T waves Rate: normal - Radiology Data Radiology results: report reviewed CHEST 1 VIEW INDICATION: Altered Mental Status. COMPARISON: 03/13/2019 FINDINGS: Support devices: None. Heart: Normal. Lungs/Pleura: No acute pulmonary or pleural findings. IMPRESSION: 1. No acute findings. CT HEAD WITHOUT CONTRAST INDICATION: Altered Mental Status. TECHNIQUE: All CT scans at this location are performed using CT dose reduction for ALARA by means of automated exposure control. COMPARISON: CT 02/06/2019. FINDINGS: HEMORRHAGE: None. EXTRA-AXIAL SPACES: Normal in size and morphology for the patient's age. VENTRICULAR SYSTEM: Normal in size and morphology for the patient's age. BRAIN PARENCHYMA: No acute findings. Bilateral basal ganglia calcifications are again noted. There are moderate to advanced periventricular white matter hypodensities consistent with microangiopathy. These have progressed since the prior and are advanced for the patient's age. Chronic lacunar infarcts are again seen in the basal ganglia. There is diffuse atrophy. Hypodensity in the left suzanna is unchanged, this is likely a chronic lacunar infarct as well. MIDLINE SHIFT OR HERNIATION: None. ORBITS: Normal as visualized. SOFT TISSUES OF HEAD: Normal. CALVARIUM: Normal. VISUALIZED PARANASAL SINUSES AND MASTOID AIR CELLS: Clear. ADDITIONAL FINDINGS: None. IMPRESSION: 1. No acute intracranial abnormality. Additional findings as above are unexpected given the patient's young age. - Medical Decision Making Patient is a 54-year-old male who presents emergency room with complaints of altered mental status. Patient per EMS and per the patient's family is normally not confused. Patient is oriented x3 however the patient is a poor historian and is not sure why he is here but denies pain. Patient answers are noted to a lot of questions. Patient vital signs reassuring. Patient had an EKG done which shows no acute findings or ST changes. I personally reviewed EKG. Patient had a head CT for the ultimate status and it was negative for acute findings. Patient had a chest x-ray and it was negative for acute findings. Personally reviewed the EKG and chest x-ray. Patient had labs done which were essentially unremarkable except for elevated blood sugar at 400+ and lactic acidosis. Patient's UA was negative. Patient admitted to the hospital service for further evaluation and treatment. Patient given IV fluids prior to admission. Critical care time documented due to the multiple reassessments, prolonged time at the bedside, interpretation of diagnostics and labs. - Differential Diagnosis Altered mental status, dehydration, DKA, UTI, encephalopathy Critical Care Time: Yes Critical care time in (mins) excluding proc time.: 35 Critical care attestation.: If time is entered above; I have spent that time in minutes in the direct care of this critically ill patient, excluding procedure time. Critical Care Time: 35 minutes ED Disposition Clinical Impression: Acute encephalopathy, Hyperglycemia, Lactic acid acidosis, Confusion Altered mental state Qualifiers: Altered mental status type: unspecified Qualified Code(s): R41.82 - Altered mental status, unspecified Disposition: ADMITTED INPATIENT Is pt being admited?: Yes Does the pt Need Aspirin: No Condition: Critical Time of Disposition: 00:42
--- NOTE | 2020-12-05 22:43 | XRay Report ---
CHEST 1 VIEW INDICATION: Altered Mental Status. COMPARISON: 03/13/2019 FINDINGS: Support devices: None. Heart: Normal. Lungs/Pleura: No acute pulmonary or pleural findings. IMPRESSION: 1. No acute findings. Signer Name: Saad Gudino MD Signed: 12/05/2020 10:39 PM Workstation Name: [id number]
[2020-12-05 23:02] LABS: Basophils % (Auto) 0.7 % (0.0-1.8); Eosinophils # (Auto) 0.2 K/mm3 (0.0-0.4); Eosinophils % (Auto) 3.8 % (0.0-4.3); Hematocrit 39.7 % (35.5-45.6); Hemoglobin 13.6 gm/dl (11.8-15.2); Lymphocytes % (Auto) 40.3 % (13.4-35.0); Mean Corpuscular HGB Conc 34 % (32-34); Mean Corpuscular Volume 87 fl (84-94); Monocytes # (Auto) 0.4 K/mm3 (0.0-0.8); Monocytes % (Auto) 7.7 % (0.0-7.3); Platelet Count 210 K/mm3 (140-440); Red Blood Count 4.55 M/mm3 (3.65-5.03); Red Cell Distribution Width 14.3 % (13.2-15.2)
--- NOTE | 2020-12-05 23:08 | Cat Scan Report ---
CT HEAD WITHOUT CONTRAST INDICATION: Altered Mental Status. TECHNIQUE: All CT scans at this location are performed using CT dose reduction for ALARA by means of automated e xposure control. COMPARISON: CT 02/06/2019. FINDINGS: HEMORRHAGE: None. EXTRA-AXIAL SPACES: Normal in size and morphology for the patient's age. VENTRICULAR SYSTEM: Normal in size and morphology for the patient's age. BRAIN PARENCHYMA: No acute findings. Bilateral basal ganglia calcifications are again noted. There ar e moderate to advanced periventricular white matter hypodensities consistent with microangiopathy. Th alexander have progressed since the prior and are advanced for the patient's age. Chronic lacunar infarcts are again seen in the basal ganglia. There is diffuse atrophy. Hypodensity in the left suzanna is unchan ged, this is likely a chronic lacunar infarct as well. MIDLINE SHIFT OR HERNIATION: None. ORBITS: Normal as visualized. SOFT TISSUES OF HEAD: Normal. CALVARIUM: Normal. VISUALIZED PARANASAL SINUSES AND MASTOID AIR CELLS: Clear. ADDITIONAL FINDINGS: None. IMPRESSION: 1. No acute intracranial abnormality. Additional findings as above are unexpected given the patient's young age. Signer Name: Saad Gudino MD Signed: 12/05/2020 11:04 PM Workstation Name: [id number]
[2020-12-05 23:13] LABS: INR 0.93 (0.87-1.13)
[2020-12-05 23:14] LABS: Partial Thromboplastin Time 25.1 Sec. (24.2-36.6)
[2020-12-05 23:22] LABS: Alanine Aminotransferase 12 units/L (7-56); BUN/Creatinine Ratio 13; Blood Urea Nitrogen 12 mg/dL (9-20); Calcium 9.2 mg/dL (8.4-10.2); Hemolysis Index 2
[2020-12-06] MEDS ORDERED: SODIUM CHLORIDE 0.9% 1000 ML 1,000 ML IV ONE (00:54)
[2020-12-06] MEDS ORDERED: ACETAMINOPHEN 325 MG TAB PO PRN (01:55)
[2020-12-06] MEDS ORDERED: oxyCODONE /ACETAMINOPHEN 5-325MG TAB PO PRN (01:55)
[2020-12-06] MEDS ORDERED: DEXTROSE 50% IN WATER (25GM) 50 ML SYRINGE IV PRN (01:55)
[2020-12-06] MEDS ORDERED: ONDANSETRON 4 MG/2 ML INJ IV PRN (01:55)
[2020-12-06] MEDS ORDERED: ALBUTEROL 2.5 MG/3 ML NEBU IH PRN (01:55)
[2020-12-06] MEDS ORDERED: HYDROmorphone 1 MG/1 ML INJ IV PRN (01:55)
[2020-12-06] MEDS ORDERED: SODIUM CHLORIDE 0.9% 1000 ML 1,000 ML IV SCH (02:00)
--- NOTE | 2020-12-06 02:03 | History and Physical Report ---
History of Present Illness Date of examination: 12/06/20 Date of admission: 12/06/20 01:01 Chief complaint: Altered mental status History of present illness: 54 years old male with past medical history of diabetes, hypertension, enterocolitis was brought to the hospital because of altered mental status. As per patient sister patient is altered and patient is not acting himself. Patient is alert and oriented x3 but the patient is disoriented to situation and reason that he is in the hospital. Patient answers some questions appropriate. Patient answers I do not know to a lot of questions. Patient denies pain. Patient denies fever and chills. Initial CT scan of the head shows no acute intracranial abnormality. Patient blood glucose is 435 anion gap is 13 lactic acid 2.10 Past History Past Medical History: diabetes, hypertension, other (Enterocolitis) Medications and Allergies Allergies Allergy/AdvReac Type Severity Reaction Status Date / Time No Known Allergies Allergy Verified 03/13/19 11:12 Home Medications Medication Instructions Recorded Confirmed Last Taken Type Insulin NPH/Regular [Novolin 70/30] 10 unit SUB-Q BID #1 vial 03/13/19 Unknown Rx Syringe and Needle,Insulin,1Ml 1 each MC BID #1 box 03/13/19 Unknown Rx [Insulin Syringe/Needle 1 ML] Review of Systems All systems: negative Neurological: change in mentation, confusion Exam - Constitutional Vitals: Temp Pulse Resp BP Pulse Ox 68 11 L 155/109 97 12/06/20 01:01 12/06/20 01:01 12/06/20 01:01 12/06/20 01:01 General appearance: Present: no acute distress, well-nourished - EENT Eyes: Present: PERRL ENT: hearing intact, clear oral mucosa - Neck Neck: Present: supple, normal ROM - Respiratory Respiratory effort: normal Respiratory: bilateral: diminished - Cardiovascular Heart Sounds: Present: S1 & S2. Absent: rub, click - Extremities Extremities: pulses symmetrical, No edema Peripheral Pulses: within normal limits - Abdominal General gastrointestinal: Present: soft, non-tender, non-distended, normal bowel sounds Male genitourinary: Present: normal - Integumentary Integumentary: Present: clear, warm, dry - Musculoskeletal Musculoskeletal: gait normal, strength equal bilaterally - Psychiatric Psychiatric: other (Confused) - Neurologic Neurologic: CNII-XII intact, moves all extremities, other (Confused) HEART Score - HEART Score Troponin: Troponin T 0.015 ng/mL (0.00-0.029) 12/05/20 22:41 Results - Labs CBC & Chem 7: 12/05/20 22:41 12/05/20 22:41 Labs: Laboratory Last Values WBC 5.0 K/mm3 (4.5-11.0) 12/05/20 22:41 RBC 4.55 M/mm3 (3.65-5.03) 12/05/20 22:41 Hgb 13.6 gm/dl (11.8-15.2) 12/05/20 22:41 Hct 39.7 % (35.5-45.6) 12/05/20 22:41 MCV 87 fl (84-94) 12/05/20 22:41 MCH 30 pg (28-32) 12/05/20 22:41 MCHC 34 % (32-34) 12/05/20 22:41 RDW 14.3 % (13.2-15.2) 12/05/20 22:41 Plt Count 210 K/mm3 (140-440) 12/05/20 22:41 Lymph % (Auto) 40.3 % (13.4-35.0) H 12/05/20 22:41 [place] % (Auto) 7.7 % (0.0-7.3) H 12/05/20 22:41 Eos % (Auto) 3.8 % (0.0-4.3) 12/05/20 22:41 Baso % (Auto) 0.7 % (0.0-1.8) 12/05/20 22:41 Lymph # (Auto) 2.0 K/mm3 (1.2-5.4) 12/05/20 22:41 [place] # (Auto) 0.4 K/mm3 (0.0-0.8) 12/05/20 22:41 Eos # (Auto) 0.2 K/mm3 (0.0-0.4) 12/05/20 22:41 Baso # (Auto) 0.0 K/mm3 (0.0-0.1) 12/05/20 22:41 Seg Neutrophils % 47.5 % (40.0-70.0) 12/05/20 22:41 Seg Neutrophils # 2.4 K/mm3 (1.8-7.7) 12/05/20 22:41 PT 13.0 Sec. (12.2-14.9) 12/05/20 22:41 INR 0.93 (0.87-1.13) 12/05/20 22:41 APTT 25.1 Sec. (24.2-36.6) 12/05/20 22:41 Sodium 138 mmol/L (137-145) 12/05/20 22:41 Potassium 4.2 mmol/L (3.6-5.0) 12/05/20 22:41 Chloride 102.1 mmol/L (98-107) 12/05/20 22:41 Carbon Dioxide 27 mmol/L (22-30) 12/05/20 22:41 Anion Gap 13 mmol/L 12/05/20 22:41 BUN 12 mg/dL (9-20) 12/05/20 22:41 Creatinine 0.9 mg/dL (0.8-1.3) 12/05/20 22:41 Estimated GFR > 60 ml/min 12/05/20 22:41 BUN/Creatinine Ratio 13 % 12/05/20 22:41 Glucose 435 mg/dL (75-100) H 12/05/20 22:41 Lactic Acid 1.20 mmol/L (0.7-2.0) 12/06/20 00:19 Calcium 9.2 mg/dL (8.4-10.2) 12/05/20 22:41 Total Bilirubin 0.40 mg/dL (0.1-1.2) 12/05/20 22:41 AST 12 units/L (5-40) 12/05/20 22:41 ALT 12 units/L (7-56) 12/05/20 22:41 Alkaline Phosphatase 65 units/L (35-129) 12/05/20 22:41 Ammonia 23.0 umol/L (25-60) L 12/05/20 22:41 Total Creatine Kinase 88 units/L (55-170) 12/05/20 22:41 Troponin T 0.015 ng/mL (0.00-0.029) 12/05/20 22:41 Total Protein 7.5 g/dL (6.3-8.2) 12/05/20 22:41 Albumin 4.0 g/dL (3.9-5) 12/05/20 22:41 Albumin/Globulin Ratio 1.1 % 12/05/20 22:41 Urine Color Straw (Yellow) 12/05/20 Unknown Urine Turbidity Clear (Clear) 12/05/20 Unknown Urine pH 5.0 (5.0-7.0) 12/05/20 Unknown Ur Specific [place] 1.033 (1.003-1.030) H 12/05/20 Unknown Urine Protein <15 mg/dl mg/dL (Negative) 12/05/20 Unknown Urine Glucose (UA) >=500 mg/dL (Negative) 12/05/20 Unknown Urine Ketones Neg mg/dL (Negative) 12/05/20 Unknown Urine Blood Sm (Negative) 12/05/20 Unknown Urine Nitrite Neg (Negative) 12/05/20 Unknown Urine Bilirubin Neg (Negative) 12/05/20 Unknown Urine Urobilinogen < 2.0 mg/dL (<2.0) 12/05/20 Unknown Ur Leukocyte Esterase Neg (Negative) 12/05/20 Unknown Urine WBC (Auto) < 1.0 /HPF (0.0-6.0) 12/05/20 Unknown Urine RBC (Auto) 2.0 /HPF (0.0-6.0) 12/05/20 Unknown U Epithel Cells (Auto) < 1.0 /HPF (0-13.0) 12/05/20 Unknown Plasma/Serum Alcohol < 0.01 % (0-0.07) 12/05/20 22:41 - Imaging and Cardiology CT Scan - head: report reviewed Assessment and Plan VTE prophylaxis?: Chemical Plan of care discussed with patient/family: Yes - Patient Problems (1) Acute encephalopathy Current Visit: Yes Status: Acute Plan to address problem: Admit the patient to the medical telemetry. Encephalopathy most likely is due to hyperglycemia and lactic acidosis. We will put the patient on normal saline at the rate of 100 cc/h. Humalog sliding scale Accu-Chek every 6 hours with high dose coverage. Rocephin 2 g IV daily. We do the blood culture. We will recheck CBC BMP in the morning. We will monitor the patient closely (2) Lactic acid acidosis Current Visit: Yes Status: Acute Plan to address problem: We will put the patient on normal saline at the rate of 100 cc/h. Humalog sliding scale Accu-Chek every 6 hours with high dose coverage. Rocephin 2 g IV daily. We do the blood culture. We will recheck CBC BMP in the morning. (3) Hypertension Current Visit: Yes Status: Acute Plan to address problem: Hydralazine 10 mg IV every 6 hours as needed. We will continue the home medication. We will monitor the blood pressure closely (4) Confusion Current Visit: Yes Status: Acute Plan to address problem: Encephalopathy most likely is due to hyperglycemia and lactic acidosis. We will put the patient on normal saline at the rate of 100 cc/h. Humalog sliding scale Accu-Chek every 6 hours with high dose coverage. Rocephin 2 g IV daily. We do the blood culture. We will recheck CBC BMP in the morning. We will monitor the patient closely (5) Hyperglycemia Current Visit: Yes Status: Acute Plan to address problem: normal saline at the rate of 100 cc/h. Humalog sliding scale Accu-Chek every 6 hours with high dose coverage. We will recheck CBC BMP in the morning. Diabetic education (6) Diabetes Current Visit: No Status: Acute (7) DVT prophylaxis Current Visit: Yes Status: Acute Plan to address problem: Heparin 5000 units subcu every 8 hours for DVT prophylaxis. Pepcid 20 mg p.o. twice daily for GI prophylaxis. Patient is a full code
[2020-12-06] MEDS: cefTRIAXone/NS 2 GM/100 ML 2 GM/100 ML BAG IV SCH ×2 (02:36→10:50)
[2020-12-06] MEDS: IPRATROPIUM/ALBUTEROL SULFATE 3 ML AMPUL.NEB IH SCH ×3 (06:45→17:51)
[2020-12-06] MEDS: INSULIN LISPRO 100 UNIT/ML SUB-Q SCH ×3 (06:47→19:02)
--- NOTE | 2020-12-06 10:09 | Electrocardiograph Report ---
[facility] Test Date: 2020-12-05 Test Time: 23:04:57 Pat Name: DENNIS REDDY Department: Room: [facility] Gender: M Deputy Editor In Chief: KIERSTEN : 1965 Requested By: ED DOC Order Number: [id number] Reading MD: Jerrod Loyd Measurements Intervals [place] Rate: 73 P: 0 AL: 66 QRS: -46 QRSD: 98 T: 268 QT: 374 QTc: 412 Interpretive Statements Sinus rhythm Left anterior fascicular block Nonspecific T abnormalities, inferolateral leads No previous ECG available for comparison Electronically Signed On 12-06-2020 10:09:29 EDT by Jerrod Loyd
[2020-12-06] MEDS: HEPARIN 5,000 UNIT/1 ML VIAL SUB-Q SCH (10:50)
[2020-12-06] MEDS: FAMOTIDINE 20 MG/2 ML INJ IV SCH (10:50)
--- NOTE | 2020-12-06 16:19 | Event Note ---
Date: 12/06/20 Patient with altered mental status. I have seen and examined him. MRI Brain ordered. Neurochecks.
[2020-12-07] MEDS: HEPARIN 5,000 UNIT/1 ML VIAL SUB-Q SCH ×3 (00:39→23:32)
[2020-12-07] MEDS: FAMOTIDINE 20 MG/2 ML INJ IV SCH ×3 (00:39→23:32)
[2020-12-07] MEDS: INSULIN LISPRO 100 UNIT/ML SUB-Q SCH ×5 (00:41→23:46)
[2020-12-07] MEDS: IPRATROPIUM/ALBUTEROL SULFATE 3 ML AMPUL.NEB IH SCH ×5 (01:47→22:09)
--- NOTE | 2020-12-07 05:10 | Consultation ---
History of Present Illness Consult date: 12/06/20 Reason for Consult: Encephalopathy Chief complaint: I don't know what's going on. History of present illness: 54 yo male with htn, dm, who presents w/ noted confusion and limited recall of why he was brought here in the first place. He notes he feels better overall today but is not able to be more specific. He denies any headache, nause, emesis, vertigo, focal weakness / numbness. Past History Past Medical History: diabetes, hypertension, other (Enterocolitis) Medications and Allergies Allergies Allergy/AdvReac Type Severity Reaction Status Date / Time No Known Allergies Allergy Verified 03/13/19 11:12 Home Medications Medication Instructions Recorded Confirmed Last Taken Type Insulin NPH/Regular [Novolin 70/30] 10 unit SUB-Q BID #1 vial 03/13/19 12/06/20 Unknown Rx Syringe and Needle,Insulin,1Ml 1 each MC BID #1 box 03/13/19 12/06/20 Unknown Rx [Insulin Syringe/Needle 1 ML] Active Meds: Active Medications Acetaminophen (Acetaminophen 325 Mg Tab) 650 mg PO Q4H PRN PRN Reason: Pain MILD(1-3)/Fever >100.5/MCNEIL Albuterol (Albuterol 2.5 Mg/3 Ml Nebu) 2.5 mg IH Q4HRT PRN PRN Reason: Shortness Of Breath Albuterol/Ipratropium (Ipratropium/Albuterol Sulfate 3 Ml Ampul.Neb) 1 ampul IH Q6HRT [facility] Last Admin: 12/07/20 01:47 Dose: Not Given Documented by: Dextrose (Dextrose 50% In Water (25gm) 50 Ml Syringe) 0 ml IV Q30MIN PRN; June col PRN Reason: Hypoglycemia Famotidine (Famotidine 20 Mg/2 Ml Inj) 20 mg IV BID [facility] Last Admin: 12/07/20 00:39 Dose: 20 mg Documented by: Heparin Sodium (Porcine) (Heparin 5,000 Unit/1 Ml Vial) 5,000 unit SUB-Q Q12HR [facility] Last Admin: 12/07/20 00:39 Dose: Not Given Documented by: Hydromorphone HCl (Hydromorphone 1 Mg/1 Ml Inj) 0.5 mg IV Q3H PRN PRN Reason: Pain , Severe (7-10) Sodium Chloride (Nacl 0.9% 1000 Ml) 1,000 mls @ 100 mls/hr IV DIRECT HARSHA Ceftriaxone Sodium (Rocephin/Ns 2 Gm/100 Ml) 2 gm in 100 mls @ 200 mls/hr IV Q24HR HARSHA; Protocol Last Admin: 12/06/20 10:50 Dose: 200 mls/hr Documented by: Insulin Human Lispro (Insulin Lispro 100 Unit/Ml) 0 unit SUB-Q Q6HR HARSHA; Protocol Last Admin: 12/07/20 00:41 Dose: 8 unit Documented by: Ondansetron HCl (Ondansetron 4 Mg/2 Ml Inj) 4 mg IV Q8H PRN PRN Reason: Nausea And Vomiting Oxycodone/Acetaminophen (Oxycodone /Acetaminophen 5-325mg Tab) 1 tab PO Q6H PRN PRN Reason: Pain, Moderate (4-6) Sodium Chloride (Sodium Chloride 0.9% 10 Ml Flush Syringe) 10 ml IV BID HARSHA Last Admin: 12/07/20 00:39 Dose: 10 ml Documented by: Sodium Chloride (Sodium Chloride 0.9% 10 Ml Flush Syringe) 10 ml IV PRN PRN PRN Reason: LINE FLUSH Review of Systems All systems: negative (as per HPI;) Physical Examination - Vital Signs Vital Signs: Vital Signs Pulse Ox 98 12/05/20 22:16 - Physical Exam Narrative exam: Gen: nad, well-nourished; Head: normocephalic; Eyes: no gaze deviation; no ptosis; ENT: normal vocalization; CVS: warm and well-perfused; Pulm: no respiratory distress; GI: appears non-distended; Ext: no cyanosis at distal extremities; Skin: no acute rash or hives at distal extremities; Heme: no pathologic bruisingat distal extremities; Neuro: alert, oriented to name, age, month, year, not srmc, no dysarthria, no aphasia, CN 2 - PERRL, visual [place] grossly intact, CN 3, 4, 6 - EOMI, CN 5 - facial sensation symmetric to light touch, CN 7 - facial movement symmetric, CN 8 - hearing grossly intact, CN 9, 10 - uvula midline, CN 11 - shrug symmetric, CN 12 - tongue midline; Motor - at least 4/5 at RUE and LUE; at least 4-/5 at RLE and at least 3+/5 at LLE; Sensory - light touch symmetric, Cerebellar - fnf /hts intact, Gait - deferred secondary to fall risk; Results - Laboratory Findings CBC and BMP: 12/05/20 22:41 12/05/20 22:41 Abnormal Lab Findings: Abnormal Labs 12/05/20 12/05/20 12/05/20 22:41 22:41 22:41 Lymph % (Auto) 40.3 H [place] % (Auto) 7.7 H Glucose 435 H POC Glucose Lactic Acid 2.10 H* Ammonia Ur Specific [place] 12/05/20 12/05/20 12/06/20 22:41 Unknown 06:37 Lymph % (Auto) [place] % (Auto) Glucose POC Glucose 244 H Lactic Acid Ammonia 23.0 L Ur Specific [place] 1.033 H 12/06/20 12/06/20 12/07/20 08:34 13:52 00:30 Lymph % (Auto) [place] % (Auto) Glucose POC Glucose 195 H 259 H 326 H Lactic Acid Ammonia Ur Specific [place] Assessment and Plan 54 yo male with htn, dm, who presents w/ noted confusion and limited recall of why he was brought here in the first place. He notes he feels better overall today but is not able to be more specific. He denies any headache, nause, emesis, vertigo, focal weakness / numbness. 1. Acute Metabolic Encephalopathy - confirm no underlying infection/infalmmation or vitamin deficiency, per primary team. 2. Acute Ischemic Stroke - aspirin 325 mg po qday; further workup based on MRI Brain w/ wo contrast. 3. Seizure - less likely as it seems the patient has improved; recommend EEG. 4. Delirium - confirm no hx of recreational drugs or alcohol. Gee Boateng MD Neurology [id number]
[2020-12-07 06:04] LABS: Alanine Aminotransferase 13 units/L (7-56); Albumin 4.1 g/dL (3.9-5); BUN/Creatinine Ratio 13; Blood Urea Nitrogen 10 mg/dL (9-20); Calcium 9.5 mg/dL (8.4-10.2); Hemolysis Index 7
[2020-12-07 06:05] LABS: Basophils # (Auto) 0.1 K/mm3 (0.0-0.1); Basophils % (Auto) 0.9 % (0.0-1.8); Eosinophils # (Auto) 0.2 K/mm3 (0.0-0.4); Eosinophils % (Auto) 4.1 % (0.0-4.3); Hematocrit 42.3 % (35.5-45.6); Hemoglobin 14.6 gm/dl (11.8-15.2); Lymphocytes # (Auto) 2.5 K/mm3 (1.2-5.4); Lymphocytes % (Auto) 42.4 % (13.4-35.0); Mean Corpuscular HGB Conc 35 % (32-34); Mean Corpuscular Volume 88 fl (84-94); Monocytes # (Auto) 0.4 K/mm3 (0.0-0.8); Monocytes % (Auto) 5.9 % (0.0-7.3); Platelet Count 242 K/mm3 (140-440); Red Blood Count 4.84 M/mm3 (3.65-5.03); Red Cell Distribution Width 14.5 % (13.2-15.2)
[2020-12-07] MEDS: cefTRIAXone/NS 2 GM/100 ML 2 GM/100 ML BAG IV SCH (10:15)
[2020-12-07] MEDS ORDERED: hydrALAZINE 20 MG/1 ML INJ IV PRN (15:40)
--- NOTE | 2020-12-07 15:48 | Progress Note ---
Assessment and Plan Assessment and plan: (1) Acute encephalopathy Current Visit: Yes Status: Acute Plan to address problem: Admit the patient to the medical telemetry. Encephalopathy most likely is due to hyperglycemia and lactic acidosis. We will put the patient on normal saline at the rate of 100 cc/h. Humalog sliding scale Accu-Chek every 6 hours with high dose coverage. Rocephin 2 g IV daily. We do the blood culture. We will recheck CBC BMP in the morning. We will monitor the patient closely (2) Lactic acid acidosis Current Visit: Yes Status: Acute Plan to address problem: We will put the patient on normal saline at the rate of 100 cc/h. Humalog s liding scale Accu-Chek every 6 hours with high dose coverage. Rocephin 2 g IV daily. We do the blood culture. We will recheck CBC BMP in the morning. (3) Hypertension Current Visit: Yes Status: Acute Plan to address problem: Hydralazine 10 mg IV every 6 hours as needed. We will continue the home me dication. We will monitor the blood pressure closely (4) Confusion Current Visit: Yes Status: Acute Plan to address problem: Encephalopathy most likely is due to hyperglycemia and lactic acidosis. We will put the patient on normal saline at the rate of 100 cc/h. Humalog sliding scale Accu-Chek every 6 hours with high dose coverage. Rocephin 2 g IV daily. We do the blood culture. We will recheck CBC BMP in the morning. We will monitor the patient closely (5) Hyperglycemia Current Visit: Yes Status: Acute Plan to address problem: normal saline at the rate of 100 cc/h. Humalog sliding scale Accu-Chek every 6 hours with high dose coverage. We will recheck CBC BMP in the morning. Diabetic education (6) Diabetes Current Visit: No Status: Acute (7) DVT prophylaxis Current Visit: Yes Status: Acute Plan to address problem: Heparin 5000 units subcu every 8 hours for DVT prophylaxis. Pepcid 20 mg p.o. twice daily for GI prophylaxis. Patient is a full code 12/07/20 patient with altered mental status, may be acute metabolic ence phalopathy. MRI Brain ordered. Will change to inpatient because still confused, elevated BP History Interval history: Altered mental status Hospitalist Physical - Physical exam Narrative exam: Gen:Not in acute distress, lying in bed HEENT:Normocephalic, atraumatic Neck:supple, no JVD Lungs: clear to auscultation ,no wheeze Heart:S1 and S2 reg, no murmurs, rubs or gallop Abd:Soft, non tender, non distended, normal bowel sounds Ext:No edema. no clubbing, no cyanosis Neuro:Awake, alert, confused, moves all ext - Constitutional Vitals: Temp Pulse Resp BP Pulse Ox 97.8 F 85 16 151/107 95 12/07/20 11:55 12/07/20 14:53 12/07/20 14:53 12/07/20 11:55 12/07/20 12:00 General appearance: Present: no acute distress, well-nourished HEART Score - HEART Score Troponin: Troponin T 0.015 ng/mL (0.00-0.029) 12/05/20 22:41 Results - Labs CBC & Chem 7: 12/07/20 05:14 12/07/20 05:14 Labs: Laboratory Last Values WBC 6.0 K/mm3 (4.5-11.0) 12/07/20 05:14 RBC 4.84 M/mm3 (3.65-5.03) 12/07/20 05:14 Hgb 14.6 gm/dl (11.8-15.2) 12/07/20 05:14 Hct 42.3 % (35.5-45.6) 12/07/20 05:14 MCV 88 fl (84-94) 12/07/20 05:14 MCH 30 pg (28-32) 12/07/20 05:14 MCHC 35 % (32-34) H 12/07/20 05:14 RDW 14.5 % (13.2-15.2) 12/07/20 05:14 Plt Count 242 K/mm3 (140-440) 12/07/20 05:14 Lymph % (Auto) 42.4 % (13.4-35.0) H 12/07/20 05:14 [place] % (Auto) 5.9 % (0.0-7.3) 12/07/20 05:14 Eos % (Auto) 4.1 % (0.0-4.3) 12/07/20 05:14 Baso % (Auto) 0.9 % (0.0-1.8) 12/07/20 05:14 Lymph # (Auto) 2.5 K/mm3 (1.2-5.4) 12/07/20 05:14 [place] # (Auto) 0.4 K/mm3 (0.0-0.8) 12/07/20 05:14 Eos # (Auto) 0.2 K/mm3 (0.0-0.4) 12/07/20 05:14 Baso # (Auto) 0.1 K/mm3 (0.0-0.1) 12/07/20 05:14 Seg Neutrophils % 46.7 % (40.0-70.0) 12/07/20 05:14 Seg Neutrophils # 2.8 K/mm3 (1.8-7.7) 12/07/20 05:14 PT 13.0 Sec. (12.2-14.9) 12/05/20 22:41 INR 0.93 (0.87-1.13) 12/05/20 22:41 APTT 25.1 Sec. (24.2-36.6) 12/05/20 22:41 Sodium 140 mmol/L (137-145) 12/07/20 05:14 Potassium 3.6 mmol/L (3.6-5.0) 12/07/20 05:14 Chloride 102.4 mmol/L (98-107) 12/07/20 05:14 Carbon Dioxide 26 mmol/L (22-30) 12/07/20 05:14 Anion Gap 15 mmol/L 12/07/20 05:14 BUN 10 mg/dL (9-20) 12/07/20 05:14 Creatinine 0.8 mg/dL (0.8-1.3) 12/07/20 05:14 Estimated GFR > 60 ml/min 12/07/20 05:14 BUN/Creatinine Ratio 13 % 12/07/20 05:14 Glucose 384 mg/dL (75-100) H 12/07/20 05:14 POC Glucose 266 mg/dL (70-105) H 12/07/20 11:31 Lactic Acid 1.20 mmol/L (0.7-2.0) 12/06/20 00:19 Calcium 9.5 mg/dL (8.4-10.2) 12/07/20 05:14 Total Bilirubin 0.30 mg/dL (0.1-1.2) 12/07/20 05:14 AST 15 units/L (5-40) 12/07/20 05:14 ALT 13 units/L (7-56) 12/07/20 05:14 Alkaline Phosphatase 61 units/L (35-129) 12/07/20 05:14 Ammonia 23.0 umol/L (25-60) L 12/05/20 22:41 Total Creatine Kinase 88 units/L (55-170) 12/05/20 22:41 Troponin T 0.015 ng/mL (0.00-0.029) 12/05/20 22:41 Total Protein 7.9 g/dL (6.3-8.2) 12/07/20 05:14 Albumin 4.1 g/dL (3.9-5) 12/07/20 05:14 Albumin/Globulin Ratio 1.1 % 12/07/20 05:14 TSH 1.270 mlU/mL (0.270-4.200) 12/06/20 14:18 Free T4 1.07 ng/dL (0.76-1.46) 12/06/20 14:18 Urine Color Straw (Yellow) 12/05/20 Unknown Urine Turbidity Clear (Clear) 12/05/20 Unknown Urine pH 5.0 (5.0-7.0) 12/05/20 Unknown Ur Specific [place] 1.033 (1.003-1.030) H 12/05/20 Unknown Urine Protein <15 mg/dl mg/dL (Negative) 12/05/20 Unknown Urine Glucose (UA) >=500 mg/dL (Negative) 12/05/20 Unknown Urine Ketones Neg mg/dL (Negative) 12/05/20 Unknown Urine Blood Sm (Negative) 12/05/20 Unknown Urine Nitrite Neg (Negative) 12/05/20 Unknown Urine Bilirubin Neg (Negative) 12/05/20 Unknown Urine Urobilinogen < 2.0 mg/dL (<2.0) 12/05/20 Unknown Ur Leukocyte Esterase Neg (Negative) 12/05/20 Unknown Urine WBC (Auto) < 1.0 /HPF (0.0-6.0) 12/05/20 Unknown Urine RBC (Auto) 2.0 /HPF (0.0-6.0) 12/05/20 Unknown U Epithel Cells (Auto) < 1.0 /HPF (0-13.0) 12/05/20 Unknown Plasma/Serum Alcohol < 0.01 % (0-0.07) 12/05/20 22:41 [place]/IV: Voiding Method Urinal Active Medications - Current Medications Current Medications: Generic Name Dose Route Start Last Admin Trade Name Freq PRN Reason Stop Dose Admin Acetaminophen 650 mg 12/06/20 01:55 Acetaminophen 325 Mg Tab PO Q4H PRN Pain MILD(1-3)/Fever >100.5/MCNEIL Albuterol 2.5 mg 12/06/20 01:55 Albuterol 2.5 Mg/3 Ml Nebu IH Q4HRT PRN Shortness Of Breath Albuterol/Ipratropium 1 ampul 12/06/20 02:00 12/07/20 14:52 Ipratropium/Albuterol Sulfate 3 Ml Ampul.Neb IH 1 ampul Q6HRT HARSHA Administration Amlodipine Besylate 5 mg 12/07/20 17:00 Amlodipine 5 Mg Tab PO QDAY HARSHA Dextrose 0 ml 12/06/20 01:55 Dextrose 50% In Water (25gm) 50 Ml Syringe IV Q30MIN PRN Hypoglycemia Protocol Famotidine 20 mg 12/06/20 10:00 12/07/20 10:15 Famotidine 20 Mg/2 Ml Inj IV 20 mg BID HARSHA Administration Heparin Sodium (Porcine) 5,000 unit 12/06/20 10:00 12/07/20 10:15 Heparin 5,000 Unit/1 Ml Vial SUB-Q 5,000 unit Q12HR HARSHA Administration Hydralazine HCl 10 mg 12/07/20 15:40 Hydralazine 20 Mg/1 Ml Inj IV Q4HR PRN SBP>160 or DBP>110 Hydromorphone HCl 0.5 mg 12/06/20 01:55 Hydromorphone 1 Mg/1 Ml Inj IV Q3H PRN Pain , Severe (7-10) Sodium Chloride 1,000 mls @ 100 mls/hr 12/06/20 02:00 12/07/20 05:49 Nacl 0.9% 1000 Ml IV 100 mls/hr DIRECT HARSHA Administration Ceftriaxone Sodium 2 gm in 100 mls @ 200 mls/hr 12/06/20 02:00 12/07/20 10:15 Rocephin/Ns 2 Gm/100 Ml IV 200 mls/hr Q24HR HARSHA Administration Protocol Insulin Human Isoph/Insulin Regular 10 unit 12/07/20 16:00 Insulin Nph/Regular 70/30 Inj SUB-Q BID HARSHA Insulin Human Lispro 0 unit 12/06/20 06:00 12/07/20 05:56 Insulin Lispro 100 Unit/Ml SUB-Q 4 unit Q6HR HARSHA Administration Protocol Ondansetron HCl 4 mg 12/06/20 01:55 Ondansetron 4 Mg/2 Ml Inj IV Q8H PRN Nausea And Vomiting Oxycodone/Acetaminophen 1 tab 12/06/20 01:55 Oxycodone /Acetaminophen 5-325mg Tab PO Q6H PRN Pain, Moderate (4-6) Sodium Chloride 10 ml 12/06/20 10:00 12/07/20 10:24 Sodium Chloride 0.9% 10 Ml Flush Syringe IV 10 ml BID HARSHA Administration Sodium Chloride 10 ml 12/06/20 01:55 Sodium Chloride 0.9% 10 Ml Flush Syringe IV PRN PRN LINE FLUSH Nutrition/Malnutrition Assess - Dietary Evaluation Nutrition/Malnutrition Findings: Nutrition Notes Start: 12/06/20 14:32 Freq: Status: Active Protocol: Document 12/06/20 14:32 YASMIN (Rec: 12/06/20 14:33 YASMIN [id number]) Nutrition Notes Need for Assessment generated from: MD Order,Education Initial or Follow up Brief Note Current Diagnosis Diabetes,Hypertension Other Pertinent Diagnosis AMS Current Diet NPO Subjective/Other Information MD consult for education. Pt on hold in ED. Nutrition Intervention Follow-Up By: 12/10/20 Additional Comments F/u: diet education
[2020-12-07] MEDS: amLODIPine 5 MG TAB PO SCH (16:55)
[2020-12-07] MEDS: INSULIN NPH/REGULAR 70/30 INJ SUB-Q SCH ×2 (17:14→23:34)
--- NOTE | 2020-12-07 18:46 | Magnetic Resonance Report ---
MR brain wo con INDICATION / CLINICAL INFORMATION: 54 years Male; altered mental status. TECHNIQUE: Multiplanar, multisequence MR images of the brain were obtained. COMPARISON: None available. FINDINGS: BRAIN / INTRACRANIAL CONTENTS: There is extensive cerebral and pontine white matter disease most cons istent with microvascular angiopathy. 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 The diffusion imaging reveals no evidence of acute infarction. There is moderate to cerebral atrophy for age which appears of progressed from the previous CT of 12/2018. Additionally, there is now prominence of the left temporal horn and atrophic changes appear to most notably involving left hippocampus. Furthermore, there appears to be a mild increase signal o n the axial flair and T2-weighted signal and correlation would be needed regarding mesial temporal sc lerosis. CRANIOCERVICAL JUNCTION: No significant abnormality. VASCULAR FLOW-VOIDS: No significant abnormality. ORBITS: No significant abnormality of visualized orbits. SINUSES / MASTOIDS: No significant abnormality in the visualized paranasal sinuses or mastoid air dotty ls. ADDITIONAL FINDINGS: None. IMPRESSION: 1. There is extensive microvascular angiopathy as described without CT evidence of acute intracranial hemorrhage. 2. There are notable atrophic changes for age, particularly involving left hippocampus with increasin g prominence of the left temporal horn. Additionally, appears be mild increased signal and correlatio n would be needed regarding mesial temporal sclerosis. Signer Name: Kip Quiñones MD Signed: 12/07/2020 6:41 PM Workstation Name: [id number]
[2020-12-08] MEDS: INSULIN LISPRO 100 UNIT/ML SUB-Q SCH ×2 (08:32→13:02)
[2020-12-08 09:28] VITALS: BP 136/97
[2020-12-08] MEDS: amLODIPine 5 MG TAB PO SCH (09:41)
[2020-12-08] MEDS: FAMOTIDINE 20 MG/2 ML INJ IV SCH (09:41)
[2020-12-08] MEDS: HEPARIN 5,000 UNIT/1 ML VIAL SUB-Q SCH (09:41)
[2020-12-08] MEDS: cefTRIAXone/NS 2 GM/100 ML 2 GM/100 ML BAG IV SCH (09:42)
[2020-12-08] MEDS: INSULIN NPH/REGULAR 70/30 INJ SUB-Q SCH ×2 (09:44→10:00)
--- NOTE | 2020-12-08 13:16 | Discharge Summary ---
Providers - Providers Date of Admission: 12/07/20 18:24 Date of discharge: 12/08/20 Attending physician: YONG SHOOK 12/06/20 01:55 Consult to Dietitian/Nutrition [CONS] Routine Physician Instructions: Reason For Exam: Reason for Consult: Diet education 12/06/20 10:51 Consult to Physician [CONS] Routine Comment: Consulting Provider: CHAVO MARQUEZ Physician Instructions: Reason For Exam: altered mental status 12/07/20 15:11 Speech Therapy Evaluation and Treat [CONS] Routine Reason For Exam: swallow eval 12/07/20 15:12 Speech Therapy Evaluation and Treat [CONS] Urgent Reason For Exam: AMS, ENCEPHALOPATY NEED SWALLOW EVAL' Primary care physician: [employer] Hospitalization Condition: Stable Disposition: 01 HOME / SELF CARE / HOMELESS Final Discharge Diagnosis (Prints w/discharge instructions): 1.Altered mental status. 2.Acute metabolic encephalopathy. 3.Diabetes mellitus. 4.Hypertension - Discharge Diagnoses (1) Acute metabolic encephalopathy Status: Acute (2) Altered mental state Status: Acute Qualifiers: Altered mental status type: unspecified Qualified Code(s): R41.82 - Altered mental status, unspecified (3) Hypertension Status: Acute (4) Diabetes Status: Acute Core Measure Documentation - Palliative Care Palliative Care/ Comfort Measures: Not Applicable - Core Measures Any of the following diagnoses?: none Exam - Constitutional Vitals: Temp Pulse Resp BP Pulse Ox 98.0 F 100 H 18 136/97 100 12/08/20 08:00 12/08/20 09:41 12/08/20 08:00 12/08/20 09:41 12/08/20 10:52 Plan Activity: no driving until cleared by PCP Diet: diabetic Special Instructions: other ([facility] in 1 week to evaluate multiple abnormalities on MRI Brain) Plan of Treatment: 1.Follow up with PCP in 1 week. 2.Follow up with Neurologist in 1 week Follow up with: PRIMARY CARE, [Primary Care Provider] - 7 Days Prescriptions: amLODIPine 5 mg PO QDAY #30 tablet Insulin NPH Hum/Reg Insulin Hm [Novolin 70-30 100 Unit/ml Vial] 14 unit SQ BID #1 vial
--- NOTE | 2020-12-08 13:32 | Event Note ---
Date: 12/08/20 Called girlfriend Myriam at [phone], no answer, left message.
== END 2020-12-08 17:00 | disposition home or self-care (01) | DRG 70 ==
LOC: ED 20:51 → 4A 12-06 01:01 → OBSVTOIN 12-07 18:24
PROVIDERS: ADMIT Hospitalist; ATTEND Internal Medicine
DX: G93.41 Metabolic encephalopathy (principal); I63.9 Cerebral infarction, unspecified; E87.2 Acidosis; E11.65 Type 2 diabetes mellitus with hyperglycemia; R56.9 Unspecified convulsions; I10 Essential (primary) hypertension
CPT/HCPCS: 36415; 70450; 70551; 71045; 80053; 80320; 81001; 82140; 82550; 82962; 83036; 84439; 84443; 84484; 85025; 85610; 85730; 93005; 94640; G0378; G0480; J0696; J1644; J1815; J7030